=== PATIENT | female | born 2000 | race Caucasian/White ===

== ENCOUNTER 2024-08-15 08:39 | Outpatient (REF) | payer MEDICAID, SELFPAY ==
[2024-08-15 16:30] LABS: HCG Quantitative < 2 mIU/mL
== END 2024-08-15 08:40 | disposition home or self-care (01) ==
LOC: HO.CHCLDS 08:39
PROVIDERS: Visit Provider Internal Medicine
DX: N92.6 Irregular menstruation, unspecified (principal)
CPT/HCPCS: 36415; 84702